=== PATIENT | female | born 1970 | race American Indian/Alaskan Native ===

== ENCOUNTER 2016-10-02 09:51 | Emergency (ER) | payer OTHER ==
[2016-10-02] MEDS ORDERED: NORCO 5/325 PO ONE (12:13)
[2016-10-02] MEDS ORDERED: FLEXERIL PO ONE (12:13)
--- NOTE | 2016-10-02 12:19 | Emergency Department Report ---
ED Fall HPI - General Chief Complaint: Fall Stated Complaint: FELL AT HOTEL Time Seen by Provider: 10/02/16 12:00 Source: patient Mode of arrival: Ambulatory Limitations: No Limitations - History of Present Illness Initial Comments: PT c/o fall. PT states she was in [employer] hotel room and she was walking out of room, thru kitchen area and the floor was very slick. PT reports slip and fall. PT states she bumped her head on the wall and landed hard on her left side. PT states she had blurred vision/ saw stars for a moment and then she made herself get up. PT states she feels stiff and feels a cramp when she tries to move. PT reports back and neck pain. PT states she recently saw a Dentist and was given a RX for an antibiotic and Motrin 800mg, which she took this morning. MD Complaint: fall Onset/Timin -: Sudden, hour(s) Time: 09:00 Fall From: standing When Fall Occurred: 1-3 hours [employer] Fall Witnessed: no Place Fall Occurred: other (hotel room ) Loss of Consciousness: unsure (pt reports seeing black stars after fall ) Prolonged Down Time?: no Symptoms Prior to Fall: none Location: head, chest Severity: severe Severity scale (0 -10): 9 Quality: other (stiff/cramp ) Context: tripped/slipped (on slick surface ) Associated Symptoms: headache, neck pain, chest paint. denies: numbness, weakness, abdominal pain, unable to walk, lightheaded, vertigo, confusion - Related Data Previous Rx's Medication Instructions Recorded Last Taken Type Clindamycin Phosphate [Cleocin T] 30 ml TP BID #1 solution 11/15/12 Unknown Rx Sulfamethoxazole/Trimethoprim 1 each PO BID #20 tablet 11/15/12 Unknown Rx [Bactrim DS] Acetaminophen/Codeine [Tylenol #3] 1 tab PO Q6H PRN #12 tab 10/02/16 Unknown Rx methOCARBAMOL [Robaxin TAB] 500 mg PO Q6H PRN #15 tablet 10/02/16 Unknown Rx Allergies Allergy/AdvReac Type Severity Reaction Status Date / Time No Known Allergies Allergy Verified 11/14/12 23:10 ED Review of Systems ROS: Stated complaint: FELL AT HOTEL Other details as noted in HPI Comment: All other systems reviewed and negative Constitutional: denies: fever Respiratory: denies: cough, shortness of breath Cardiovascular: chest pain (L sided chest pain ) Gastrointestinal: denies: abdominal pain, nausea, vomiting Musculoskeletal: back pain Skin: denies: rash, change in color Neurological: headache (mild ), abnormal gait (due to pain ) ED Past Medical Hx - Past Medical History Previous Medical History?: No Hx Hypertension: No Hx Diabetes: No - Surgical History Past Surgical History?: Yes Additional Surgical History: . Right Ankle - Social History Smoking Status: Never Smoker Substance Use Type: None - Medications Home Medications: Home Medications Medication Instructions Recorded Confirmed Last Taken Type Clindamycin Phosphate [Cleocin T] 30 ml TP BID #1 solution 11/15/12 Unknown Rx Sulfamethoxazole/Trimethoprim 1 each PO BID #20 tablet 11/15/12 Unknown Rx [Bactrim DS] Acetaminophen/Codeine [Tylenol #3] 1 tab PO Q6H PRN #12 tab 10/02/16 Unknown Rx methOCARBAMOL [Robaxin TAB] 500 mg PO Q6H PRN #15 tablet 10/02/16 Unknown Rx ED Physical Exam - General Limitations: No Limitations General appearance: alert, in no apparent distress - Head Head exam: Present: atraumatic, normocephalic, normal inspection - Eye Eye exam: Present: PERRL, EOMI. Absent: normal appearance (pt wearing colored contacts), conjunctival injection, nystagmus Pupils: Present: normal accommodation - ENT ENT exam: Present: normal exam, mucous membranes moist, TM's normal bilaterally , normal external ear exam - Neck Neck exam: Present: normal inspection, tenderness, other (+ post midline C- spine tenderness, + decreased ROM, + L trapizeous tenderness). Absent: full ROM , lymphadenopathy - Respiratory Respiratory exam: Present: normal lung sounds bilaterally, chest wall tenderness (L ribs ttp ). Absent: respiratory distress - Cardiovascular Cardiovascular Exam: Present: regular rate, normal rhythm, normal heart sounds - GI/Abdominal GI/Abdominal exam: Present: soft, normal bowel sounds. Absent: tenderness, guarding, rebound - Extremities Exam Extremities exam: Present: normal inspection, tenderness. Absent: pedal edema - Expanded Upper Extremity Exam Left General: Present: normal inspection Shoulder Exam: Present: normal inspection. Absent: tenderness Elbow exam: Present: normal inspection, full ROM Forearm Wrist exam: Present: normal inspection, full ROM Right General: Present: normal inspection Shoulder Exam: Present: normal inspection, full ROM. Absent: tenderness Elbow exam: Present: normal inspection, full ROM Forearm Wrist exam: Present: normal inspection, full ROM Hand Wrist exam: Present: normal inspection, full ROM - Expanded Lower Extremity Exam Right Hip exam: Absent: tenderness Knee exam: Absent: swelling Lower Leg exam: Absent: tenderness Ankle exam: Absent: tenderness Neuro vascular tendon exam: Present: no vascular compromise Left Hip exam: Present: tenderness, pelvic stability. Absent: deformity, external rotation, internal rotation, shortening Knee exam: Absent: tenderness Lower Leg exam: Present: normal inspection. Absent: tenderness Ankle exam: Present: normal inspection, full ROM. Absent: tenderness Neuro vascular tendon exam: Present: no vascular compromise - Back Exam Back exam: Present: normal inspection, tenderness, vertebral tenderness (to t and l spine ). Absent: full ROM, CVA tenderness (R), CVA tenderness (L), muscle spasm, paraspinal tenderness - Neurological Exam Neurological exam: Present: alert, oriented X3, CN II-XII intact - Psychiatric Psychiatric exam: Present: normal affect, normal mood - Skin Skin exam: Present: warm, dry, intact, normal color ED Course Vital Signs 10/02/16 10/02/16 10:05 14:10 Temperature 98.5 F 98.2 F Pulse Rate 73 66 Respiratory 18 16 Rate Blood Pressure 127/75 Blood Pressure 114/76 [Left] O2 Sat by Pulse 100 100 Oximetry - Reevaluation(s) Reevaluation #1: 10/02/16 12:24 PT aware of plan of care. PT has no questions at this time. Reevaluation #2: 10/02/16 13:42 PT states that her pain has mildly decreased sp Thurman and Flexeril. PT aware of XR and CT reports. PT aware that she can expect to be sore for the next few days from the trauma and that the pain should gradually improve. PT aware of mass that was seen on lumbar films. PT states she has a hx of uterine fibroids. PT verbalizes understanding of need to follow up. PT has no questions at this time. - Pulse Oximetry Interpretation Digit-Finger Initial Pulse Oximetry Readin Actions Taken: none ED Medical Decision Making - Radiology Data Radiology results: report reviewed CT head - NAP CT C-spine - NAP, degenerative changes XR t spine - NAP XR l spine - no fx. mass XR l hip- nap xr chest and L ribs - nap - Differential Diagnosis intracranial process, fracture, strain, contusion Critical Care Time: No Critical care attestation.: If time is entered above; I have spent that time in minutes in the direct care of this critically ill patient, excluding procedure time. ED Disposition Clinical Impression: Chest wall pain, Mass Fall from slipping on slippery surface Qualifiers: Encounter type: initial encounter Qualified Code(s): W01.0XXA - Fall on same level from slipping, tripping and stumbling without subsequent striking against object, initial encounter CHI (closed head injury) Qualifiers: Encounter type: initial encounter Qualified Code(s): S09.90XA - Unspecified injury of head, initial encounter Cervical strain, acute Qualifiers: Encounter type: initial encounter Qualified Code(s): S16.1XXA - Strain of muscle, fascia and tendon at neck level, initial encounter Back pain Qualifiers: Back pain location: back pain in unspecified location Chronicity: acute Back pain laterality: midline Qualified Code(s): M54.9 - Dorsalgia, unspecified Hip pain Qualifiers: Laterality: left Qualified Code(s): M25.552 - Pain in left hip Disposition: DC- TO HOME OR SELFCARE Is pt being admited?: No Does the pt Need Aspirin: No Condition: Stable Instructions: Chest Pain (ED), Cervical Spine Strain (ED), Rib Fracture (ED), Minor Head Injury (ED), RICE Therapy (ED), Fall Prevention (ED) Additional Instructions: You can continue to take your Motrin Do not drive or drink alcohol after taking Robaxin or Tylenol #3 Follow up with PCP in 3-5 days Prescriptions: Acetaminophen/Codeine [Tylenol #3] 1 tab PO Q6H PRN #12 tab PRN Reason: Pain , Severe (7-10) methOCARBAMOL [Robaxin TAB] 500 mg PO Q6H PRN #15 tablet PRN Reason: Muscle Spasm Referrals: PRIMARY CARE, [Primary Care Provider] - 3-5 Days ITZ NG MD [Staff Physician] - 3-5 Days JENN ABBOTT MD [Staff Physician] - 3-5 Days Forms: Work/School Release Form(ED) Time of Disposition: 13:51
--- NOTE | 2016-10-02 12:40 | Cat Scan Report ---
CT scan of cervical spine: History: Fall, pain. Findings: The odontoid process and lateral mass appears intact. Anterior and posterior arch of atlas appears normal. Normal prevertebral soft tissue. Normal height of vertebral bodies. Decrease in height of C5-C6 with evidence of mild cervical spondylosis. No fracture. Impression: No acute fracture. Cervical spondylosis.
--- NOTE | 2016-10-02 12:41 | Cat Scan Report ---
CT scan of head without contrast: History: Followup trauma pain. Findings: Ventricles are normal in size and midline in location. No evidence of acute ischemia, hemorrhage or mass. No extra axial fluid collection. Normal brainstem and cerebellum. Normal sinuses and mastoid air cells. Impression: Essentially negative CT scan of head.
--- NOTE | 2016-10-02 13:07 | XRay Report ---
Left hip 2 views: History: Status post fall. Findings: No fracture or dislocation. Faint soft tissue calcification laterally. Impression: No fracture or dislocation
--- NOTE | 2016-10-02 13:09 | XRay Report ---
Left ribs 3 views with single view chest: History: Pain status post fall. Findings: No fracture, lytic lesion at ribs. No acute lung changes. Normal size heart. Impression: Essentially negative chest. Essentially negative left ribs.
--- NOTE | 2016-10-02 13:11 | XRay Report ---
Lumbar spine 3 views: History: Pain status post fall. Findings: Normal height of vertebral border the intervertebral disc. Normal articular surfaces. No fracture. No paravertebral mass. Impression: No evidence of acute fracture. Incidentally noted circumscribed calcified mass measuring 3.9 cm in diameter overlying lower mid sacrum.
--- NOTE | 2016-10-02 13:12 | XRay Report ---
Thoracic spine 2 views: History: Pain status post fall. Findings: Normal height of vertebral bodies. Minimal decrease in height of intervertebral disc. Sclerotic adjacent articular surfaces with degenerative changes. No fracture. No paravertebral mass. Impression: Degenerative dorsal spine. No acute fracture.
[2016-10-02 14:12] VITALS: BP 114/76
== END 2016-10-02 14:08 | disposition home or self-care (01) ==
LOC: ED 09:51
DX: S09.90XA Unspecified injury of head, initial encounter (principal); S16.1XXA Strain of muscle, fascia and tendon at neck level, initial encounter; M54.9 Dorsalgia, unspecified; M25.552 Pain in left hip; R22.2 Localized swelling, mass and lump, trunk; W18.09XA Striking against other object with subsequent fall, initial encounter; Y93.89 Activity, other specified; Y99.8 Other external cause status; Y92.89 Other specified places as the place of occurrence of the external cause
CPT/HCPCS: 70450; 72070; 72100; 72125